=== PATIENT | female | born 1935 | race Caucasian/White ===

== ENCOUNTER 2018-03-27 16:07 | Outpatient (CLI) | payer MEDICARE ==
[2018-03-27 16:25] LABS: #Basophils 0.1 thou/uL (0.0-0.2); #Eosinphils 0.1 thou/uL (0.0-0.7); #Lymphocytes 1.7 thou/uL (1.20-3.40); #Monocytes 0.6 thou/uL (0.11-0.59); #Neutrophils 4.2 thou/uL (1.40-6.50); %Basophils 0.9 % (0.0-1.0); %Eosinophils 1.4 % (0.0-10.0); %Lymphocytes 25.8 % (21.0-51.0); %Monocytes 8.6 % (0.0-10.0); %Neutrophils 63.3 % (42.0-75.0); Hemoglobin 12.1 g/dL (12.0-16.0); Mean Corpuscular HGB CONC 33.5 g/dL (32.0-36.0); Mean Corpuscular Hemoglobin 30.6 pg (27.0-31.0); Mean Corpuscular Volume 91.6 fL (78.0-98.0); Mean Platelet Volume 6.6 fL (7.4-10.4); Platelet Count 230 thou/uL (130-400); RBC Distribution Width 12.7 % (11.5-14.5); Red Blood Cell (RBC) Count 3.96 mill/uL (4.20-5.40); White Blood Cell (WBC) Count 6.6 thou/uL (4.8-10.8)
[2018-03-27 16:32] LABS: Bilirubin Negative (Negative); Blood, Urine Negative (Negative); Glucose, Urine (Dipstick) Negative (Negative); Leukocyte Trace (Negative); Nitrite Negative (Negative); Protein, Urine (Dipstick) Negative (Neg-Trace); Urobilinogen 0.2 mg/dL (0.2-1.0); pH, Urine 6.5 (5.0-9.0)
[2018-03-27 16:36] LABS: Clarity Hazy (Clear)
[2018-03-27 16:39] LABS: RBC/HPF None Seen HPF (0-3); WBC/HPF 0-3 HPF (0-3)
[2018-03-27 16:40] LABS: Bacteria/HPF Rare-Few HPF (None Seen)
[2018-03-27 16:41] LABS: ALT (SGPT) 21 U/L (8-55); AST (SGOT) 20 U/L (5-34); Alkaline Phosphatase 62 U/L (40-150); Anion Gap 13 mmol/L (10-20); BUN (Urea Nitrogen) 26 mg/dL (9.8-20.1); Bilirubin, Total 0.4 mg/dL (0.2-1.2); Calc. Creatinine Clearance 0 mL/min (70-130); Calcium 8.8 mg/dL (7.8-10.44); Carbon Dioxide 24 mmol/L (23-31); Chloride 102 mmol/L (98-107); Estimated GFR-MDRD 38; Globulin 2.5 g/dL (2.4-3.5); Glucose 113 mg/dL (83-110); Potassium 4.6 mmol/L (3.5-5.1); Protein, Total 6.5 g/dL (6.0-8.3); Sodium 134 mmol/L (136-145)
--- NOTE | 2018-03-27 16:59 | RAD ---
CHEST PA AND LATERAL: HISTORY: An 82-year-old female with a history of R05, cough for the past 2 months with left-sided and back-vineet ed rib pain. COMPARISON: 09/09/2015. FINDINGS: Postop midline sternotomy. Upper range of normal size heart. Bone demineralization. Aortic valve r eplacement. Minimal stable increased linear and interstitial markings noted bilaterally. No conflue nt pneumonia, overt edema, or pleural effusion. IMPRESSION: Postop midline sternotomy and valvular replacement. Borderline cardiomegaly. Stable increased saeed ngs bilaterally. No confluent pneumonia, overt edema, or pleural effusion. POS: [facility]
[2018-03-27 17:25] LABS: Thyroid Stimulating Hormone 1.2486 uIU/mL (0.35-4.94)
[2018-03-27 18:28] LABS: Reticulocyte Count 2.6 % (0.5-1.5)
[2018-03-27 19:05] LABS: Iron 117 ug/dL (50-170); Iron Binding Capacity, Total 355 mcg/dL (265-497)
[2018-03-27 19:21] LABS: Ferritin 55.31 ng/mL (10-291)
== END 2018-03-27 16:08 | disposition home or self-care (01) ==
LOC: SCSRAD 16:07
PROVIDERS: ATTEND Family Medicine
DX: R05 Cough (principal); R53.1 Weakness; D50.9 Iron deficiency anemia, unspecified; I11.0 Hypertensive heart disease with heart failure; I50.9 Heart failure, unspecified; I51.7 Cardiomegaly; Z95.2 Presence of prosthetic heart valve; Z98.890 Other specified postprocedural states
CPT/HCPCS: 36415; 71046; 80053; 81001; 82728; 83540; 83550; 83880; 84443; 85025; 85046